=== PATIENT | female | born 1950 | race Caucasian/White ===

== ENCOUNTER 2017-12-17 12:50 | Outpatient (CLI) | payer MEDICARE | END 2017-12-17 12:51 | disposition home or self-care (01) | LOC: BICMAMMO 12:50 | PROVIDERS: ATTEND Family Medicine | DX: Z78.0 Asymptomatic menopausal state (principal) | CPT/HCPCS: 77080 ==

== ENCOUNTER 2018-03-12 09:17 | Outpatient (CLI) | payer MEDICARE | END 2018-03-12 09:18 | disposition home or self-care (01) | LOC: BICMAMMO 09:17 | PROVIDERS: ATTEND Obstetrics & Gynecology | DX: Z12.31 Encounter for screening mammogram for malignant neoplasm of breast (principal); Z85.42 Personal history of malignant neoplasm of other parts of uterus; Z85.89 Personal history of malignant neoplasm of other organs and systems | CPT/HCPCS: 77063; 77067 ==

== ENCOUNTER 2019-02-25 09:47 | Outpatient (CLI) | payer MEDICARE ==
--- NOTE | 2019-02-25 10:50 | ULT ---
ULTRASOUND RETROPERITONEUM COMPLETE: (RENAL) DATE: 02/25/19 HISTORY: 68-year-old female with renal insufficiency. COMPARISON: None available. FINDINGS: Right kidney measures 10.5 x 5 x 5 cm. Left kidney measures 11 x 5.5 x 5.5 cm. 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 No hydronephrosis bilaterally. Pre-void bladder volume is approximately 105 mL, with no gross abnormality identified. Bilateral uret eral jets demonstrated. In the parapelvic central portion of the right renal mid pole, there is an approximately 2.5 x 1.5 cm focus of echogenicity that is similar to that of renal cortex. The turning machine operator has measured this as a mass, but it is probably a column of Lang. This is adjacent to what appears to be a dromedary hum p in the cortex. In the contralateral left kidney, at the mid pole parenchyma, there is small, focal, 1.5 x 2 x 2 cm, structure that has echogenicity that is slightly lower than that of adjacent parenchyma. The sonograp her has labeled this as a cyst, but I am uncertain whether this is a cyst or a solid mass. Nearby, there is a wedge-shaped cortical defect in the parenchyma of the left renal lower pole consis tent with focal scar. IMPRESSION: 1. Small, 2 cm, slightly hypoechoic lesion in the left renal mid pole. Uncertain whether this is a c ystic lesion or a solid nodule. This requires further evaluation. Because of renal insufficiency, iod inated IV contrast would be contraindicated (depending on the severity of the renal insufficiency). M RI of the kidneys should be considered. Depending on the GFR, MultiHance Gadolinium based contrast ag ent may or may not be given (recommend ordering of renal MRI with and without contrast, and final dec ision for whether IV contrast will be given will be decided by the radiologist based on GFR). 2. Left renal lower pole focal scar from prior insult. 3. No hydronephrosis. LISA Tijerina POS: CET
== END 2019-02-25 09:48 | disposition home or self-care (01) ==
LOC: BICULT 09:47
PROVIDERS: ATTEND Internal Medicine
DX: N28.9 Disorder of kidney and ureter, unspecified (principal)
CPT/HCPCS: 76770

== ENCOUNTER 2019-03-06 13:45 | Emergency (ER) | payer MEDICARE | END 2019-03-06 14:12 | disposition home or self-care (01) | LOC: SCSER 13:45 | DX: L03.213 Periorbital cellulitis (principal); K21.9 Gastro-esophageal reflux disease without esophagitis; I10 Essential (primary) hypertension | CPT/HCPCS: 99283 ==

== ENCOUNTER 2019-03-12 13:42 | Outpatient (CLI) | payer MEDICARE ==
--- NOTE | 2019-03-12 17:03 | MRI ---
MRI OF THE ABDOMEN WITH AND WITHOUT CONTRAST: 03/12/19 INDICATION: History of renal mass. COMPARISON: Renal ultrasound dated 02/25/19. TECHNIQUE: Multiplanar and multisequence MR images were obtained of the abdomen with and without contrast utiliz ing 19 mL of Multihance. FINDINGS: Both kidneys are malrotated, left greater than right. No focal renal lesion is demonstrated. No abnor mal region of enhancement is demonstrated. No hydronephrosis is noted. The liver, pancreas, adrenal glands, and spleen appear within normal limits. No free fluid or enlarge d lymph nodes are evident. There is a normal appendix seen within the right lower quadrant of the abd omen. No bone marrow signal abnormality is grossly evident. IMPRESSION: The suspected mass involving the left kidney most likely related to artifact and the patient's malrot ated left kidney. No focal renal lesion is evident that is suspicious for malignancy. POS: CET
== END 2019-03-12 13:43 | disposition home or self-care (01) ==
LOC: BICMRI 13:42
PROVIDERS: ATTEND Internal Medicine
DX: N28.89 Other specified disorders of kidney and ureter (principal)
CPT/HCPCS: 74183; 82565

== ENCOUNTER 2019-03-30 13:02 | Outpatient (CLI) | payer MEDICARE ==
--- NOTE | 2019-03-30 15:07 | ULT ---
VENOUS DOPPLER ULTRASOUND OF THE RIGHT UPPER EXTREMITY: HISTORY: Right posterior wrist pain. TECHNIQUE: Overton-scale ultrasound with color-flow and spectral Doppler imaging of the deep venous system of the r ight upper extremity is performed. FINDINGS: There is good flow, compression, and normal spectral waveforms in the deep veins of the right upper e xtremity, including the intraventricular, subclavian, axillary, brachial, radial, ulnar, basilic, and cephalic veins. IMPRESSION: No evidence of deep venous thrombosis in the right upper extremity. POS: DONAVON
== END 2019-03-30 13:03 | disposition home or self-care (01) ==
LOC: ULT 13:02
PROVIDERS: ATTEND Internal Medicine
DX: I80.8 Phlebitis and thrombophlebitis of other sites (principal); M25.531 Pain in right wrist; I10 Essential (primary) hypertension

== ENCOUNTER 2019-05-19 12:27 | Outpatient (CLI) | payer MEDICARE ==
--- NOTE | 2019-05-19 13:12 | MMO ---
Bilateral MAMMO Bilat Screen [facility]. CLINICAL HISTORY: Patient is 69 years old and is seen for screening. The patient has no family history of breast cancer. The patient has a history of uterine cancer at age 65. VIEWS: The views performed were: bilateral craniocaudal with tomosynthesis and bilateral mediolateral oblique with tomosynthesis. FILMS COMPARED: The present examination has been compared to prior imaging studies performed at [facility] on 02/15/2015, 03/01/2016, 03/11/2017 and 03/12/2018. MAMMOGRAM FINDINGS: There are scattered fibroglandular densities. There are no suspicious masses, suspicious calcifications, or new areas of architectural distortion. IMPRESSION: THERE IS NO MAMMOGRAPHIC EVIDENCE OF MALIGNANCY. A ROUTINE FOLLOW-UP MAMMOGRAM IN 1 YEAR IS RECOMMENDED. THE RESULTS OF THIS EXAM WERE SENT TO THE PATIENT. ACR BI-RADS Category 1 - Negative MAMMOGRAPHY NOTE: 1. A negative mammogram report should not delay a biopsy if a dominant of clinically suspicious mass is present. 2. Approximately 10% to 15% of breast cancers are not detected by mammography. 3. Adenosis and dense breasts may obscure an underlying neoplasm. Reported by: Rosa Maria MAC Electonically Signed: [id number]
== END 2019-05-19 12:28 | disposition home or self-care (01) ==
LOC: BICMAMMO 12:27
PROVIDERS: ATTEND Obstetrics & Gynecology
DX: Z12.31 Encounter for screening mammogram for malignant neoplasm of breast (principal); Z85.54 Personal history of malignant neoplasm of ureter
CPT/HCPCS: 77063; 77067

== ENCOUNTER 2021-08-22 12:56 | Outpatient (CLI) | payer MEDICARE | END 2021-08-22 12:57 | disposition home or self-care (01) | LOC: BICMAMMO 12:56 | PROVIDERS: ATTEND Internal Medicine | DX: Z12.31 Encounter for screening mammogram for malignant neoplasm of breast (principal); Z13.820 Encounter for screening for osteoporosis; Z78.0 Asymptomatic menopausal state; Z85.41 Personal history of malignant neoplasm of cervix uteri | CPT/HCPCS: 77063; 77067; 77080 ==

== ENCOUNTER 2021-11-01 09:33 | Outpatient (CLI) | payer MEDICARE | END 2021-11-01 09:34 | disposition home or self-care (01) | LOC: BICULT 09:33 | PROVIDERS: ATTEND Internal Medicine | DX: N39.0 Urinary tract infection, site not specified (principal) | CPT/HCPCS: 76770 ==

== ENCOUNTER 2022-10-10 11:59 | Outpatient (CLI) | payer MEDICARE | END 2022-10-10 12:00 | disposition home or self-care (01) | LOC: BICMAMMO 11:59 | PROVIDERS: ATTEND Internal Medicine | DX: Z12.31 Encounter for screening mammogram for malignant neoplasm of breast (principal); Z85.42 Personal history of malignant neoplasm of other parts of uterus | CPT/HCPCS: 77063; 77067 ==

== ENCOUNTER 2022-11-27 09:06 | Outpatient (CLI) | payer MEDICARE | END 2022-11-27 09:07 | disposition home or self-care (01) | LOC: BICMAMMO 09:06 | PROVIDERS: ATTEND Obstetrics & Gynecology | DX: M81.0 Age-related osteoporosis without current pathological fracture (principal); M85.80 Other specified disorders of bone density and structure, unspecified site; E28.39 Other primary ovarian failure | CPT/HCPCS: 77080 ==

== ENCOUNTER 2023-11-24 14:23 | Outpatient (CLI) | payer MEDICARE | END 2023-11-24 14:24 | disposition home or self-care (01) | LOC: BICMAMMO 14:23 | PROVIDERS: ATTEND Internal Medicine | DX: Z12.31 Encounter for screening mammogram for malignant neoplasm of breast (principal); Z85.42 Personal history of malignant neoplasm of other parts of uterus | CPT/HCPCS: 77063; 77067 ==

== ENCOUNTER 2024-12-03 11:05 | Outpatient (CLI) | payer MEDICARE | END 2024-12-03 11:06 | disposition home or self-care (01) | LOC: BICMAMMO 11:05 | PROVIDERS: ATTEND Obstetrics & Gynecology | DX: Z12.31 Encounter for screening mammogram for malignant neoplasm of breast (principal); Z85.42 Personal history of malignant neoplasm of other parts of uterus | CPT/HCPCS: 77063; 77067 ==